=== PATIENT | male | born 2000 | race Caucasian/White ===

== ENCOUNTER 2023-12-06 11:29 | Emergency (ER) | payer OTHER, SELFPAY ==
[2023-12-06 11:30] VITALS: BP 138/83; PULSE 80; RESP 14; TEMP 36.6; O2SAT 99; BMI 24.4
--- NOTE | 2023-12-06 11:33 | RAD_ITS ---
STUDY: X-RAY CHEST REASON FOR EXAM: Male, 23 years old. Cough and chest pain. TECHNIQUE: PA and lateral views of the chest. COMPARISON: None. FINDINGS: Right middle lobe infiltrate. There is no demonstrated pleural abnormality. Normal size heart. Normal mediastinum and debo. Normal visualized pulmonary arteries. Normal visualized aortic arch and descending thoracic aorta. Normal visualized thoracic spine. Normal visualized ribs, clavicles, and shoulders. There is no demonstrated abnormality of the visualized soft tissue structures of the upper abdomen. RAD/Chest PA and Lateral IMPRESSION: Right middle lobe infiltrate. Electronically Signed: Tommy Gallagher MD at 12:31 EDT ,
--- NOTE | 2023-12-06 12:44 | EKG12_ITS ---
Test Reason : CP Blood Pressure : / mmHG Vent. Rate : 075 BPM Atrial Rate : 075 BPM P-R Int : 152 ms QRS Dur : 114 ms QT Int : 382 ms P-R-T Axes : 054 054 032 degrees QTc Int : 426 ms Normal sinus rhythm Normal ECG Confirmed by GALINA MORRISON, RUPERTO ([id number]), video effects editor LARRY ALBERTO ([id number]) on 12/07/2023 10:07:42 AM Referred By: Confirmed By:RUPERTO MOJICA MD
--- NOTE | 2023-12-06 13:05 | ED.VIS.CHEST ---
HPI History of Present Illness Chief Complaint: Chest Pain Informant: patient Narrative Narrative: 23-year-old male presenting to the emergency room with a sharp stabbing pain in his epigastrium lower left anterior chest. He states that he gets this thought so much with sitting but when he goes to stand and move around. It is not necessarily tender to palpation except very focally in the epigastrium. He notes that last weekend he had a cough and fever but seems to be recovering from that. He states he also played lacrosse last week and wonders if that could have played a role. Denies any pleuritic component. No rashes. PFSH PFSH Home Medications ?Medication ?Instructions ?Recorded ?Last Taken ?Type azithromycin 250 mg tablet See Rx Instructions PO .COMPLEX #6 12/06/23 Unknown Rx (Zithromax Z-Lionel) tabs Allergy/AdvReac Type Severity Reaction Status Date / Time No Known Allergies Allergy Verified 12/06/23 11:30 Social History Smoking Status: Never smoker ROS ROS ED Constitutional Constitutional ED: Reports fever(s); Denies chills or weight loss Eyes Eyes: Denies change in vision or diplopia ENT ENT ED: Denies ear pain, rhinorrhea or sore throat Cardiovascular Cardiovascular: Reports as per HPI and chest pain; Denies orthopnea, palpitations or racing heartbeat Respiratory/Chest Respiratory/Chest: Reports cough; Denies dyspnea or orthopnea Gastrointestinal Gastrointestinal: Reports abdominal pain; Denies diarrhea, nausea or vomiting Genitourinary Genitourinary ED: Denies dysuria, hematuria or urinary frequency Musculoskeletal Musculoskeletal: Denies arthralgias or myalgias Integumentary Denies abscess or rash Neurologic Neurologic: Denies headache(s) or weakness Psychiatric Psychiatric: Denies anxiety, depression, suicidal ideation or suicidal thoughts Endocrine Endocrinology: Denies polydipsia, polyphagia or polyuria Allergic/Immunologic Allergic/Immunologic ED: Denies mouth swelling, tongue swelling or urticaria EXAM Physical Exam Const Vital Signs: 12/06/23 11:30 12/06/23 11:30 12/06/23 13:15 Temperature 98 F 98.6 F Temperature Source Oral Pulse Rate 80 81 Respiratory Rate 14 16 Respiratory Effort Normal Blood Pressure 138/83 H 126/64 H Blood Pressure Mean 101 84 Pulse Ox 99 100 Oxygen Delivery Method Room Air Positive well nourished and well developed General Appearance ED: well developed HEENT Reports normocephalic, head/scalp atraumatic and moist mucous membranes Eyes PERRL and EOMs intact bilaterally Neck no lymphadenopathy, supple and no JVD Resp normal respiratory effort and clear to auscultation bilaterally Cardio regular rate, regular rhythm and no murmurs GI GI Narrative: Tender to palpation over the xiphoid process in the epigastric area. No guarding or rebound. No abdominal distention. Palpation: soft Back/Spine no CVA tenderness and normal ROM Extremity normal to inspection General Extremety ED: Negative for edema General Extremity: Negative for edema Neuro oriented x3 and CN's II-XII intact bilaterally Sensorium / Orientation: alert Motor Exam: strength 5/5 throughout Psych mental status grossly normal Mood & Affect: Negative for depressed or tearful Skin no rashes or lesions noted and no wounds MDM MDM MDM Narrative Medical decision making narrative: Differential diagnosis includes but not limited to chest wall pain pericarditis pneumonia abdominal wall strain costochondritis pleural effusion pneumothorax Patient's EKG is in normal sinus rhythm with no concerning ST segments. My independent interpretation of the chest x-ray is a right middle lobe infiltrate. Clinically the sharp stabbing pain with standing located along his xiphoid process is most likely chest wall/musculoskeletal in nature. I do not think that the middle lobe infiltrate is resulting in the discomfort as he does not have any discomfort laterally. I do think we can treat the pneumonia with azithromycin though clinically he seems to be improving of the chest x-ray may be lagging behind the clinical picture but I think it is more appropriate to go ahead and cover with antibiotic. This was all discussed with the patient who notes understanding the plan History & Record Review Discussion w/independent historian: Patient Radiography Diagnostic Testing: Clinical Impression(s) from Imaging Studies Chest X-Ray 12/06/23 11:33 IMPRESSION: Right middle lobe infiltrate. Electronically Signed: Tommy Gallagher MD at 12:31 EDT , EKG Initial EKG: Attestation: I personally reviewed and interpreted this EKG as follows: Comments: Normal sinus rhythm ventricular rate of 75 bpm Discharge Plan Triage Chief Complaint: Chest Pain ED Provider: Dion Amezcua Dx/Rx/DC Orders Clinical Impression: Pneumonia, Chest pain Instructions: ED Pneumonia (Adult) Prescriptions: New azithromycin [Zithromax Z-Lionel] 250 mg tablet See Rx Instructions PO .COMPLEX Qty: 6 0RF Rx Instructions: For 250 mg dose pack: take 500 mg today (day 1), then 250 mg for 4 days (days 2-5) Primary Care Provider: Abdon Aparicio Referrals: [facility] [Group of Physicians] - As Needed Print Language: Greenlandic Disposition Disposition: Home, Self Care Discharge Date/Time: 12/06/23 13:16
[2023-12-06 13:15] VITALS: BP 126/64; PULSE 81; RESP 16; TEMP 37; O2SAT 100
== END 2023-12-06 13:16 | disposition home or self-care (01) ==
LOC: ED 13:07
PROVIDERS: Emergency Provider Emergency Medicine; PCP Pediatrics; Visit Provider Emergency Medicine
DX: R07.9 Chest pain, unspecified (principal); J18.9 Pneumonia, unspecified organism
CPT/HCPCS: 71046; 93005; 99282